=== PATIENT | male | born 1960 | race Caucasian/White ===

== ENCOUNTER → 2017-02-17 | Outpatient (CLI) | payer OTHER ==
[~2017-02-17] MED LIST: ASPIRIN 81M81 MG/TA2 PO; BRILINTA90 MG PO; GLUCOPHAGE500 MG/TAB PO; LIPITOR 40MG TA40 MG PO; NITROQUICK0.4 MG SL; NORCO 325 MG-51 TAB PO; TOPROL XL100 MG PO; VASOTEC 5MG5 MG/TAB; WELLBUTRIN SR150 M1 PO
== END ==
LOC: COL.RAD 13:32
DX: M54.41 Lumbago with sciatica, right side (principal); M47.816 Spondylosis without myelopathy or radiculopathy, lumbar region; M99.53 Intervertebral disc stenosis of neural canal of lumbar region; M48.06 Spinal stenosis, lumbar region

== ENCOUNTER → 2017-03-17 | Outpatient (REF) | LOC: WSOH 09:00 | DX: Z02.89 Encounter for other administrative examinations (principal) ==

== ENCOUNTER 2017-03-26 10:56 | Outpatient (RCR) | payer OTHER | END 2017-03-26 13:45 | disposition still patient (30) | LOC: WSOH 10:56 | DX: S01.81XA Laceration without foreign body of other part of head, initial encounter (principal); W26.8XXA Contact with other sharp object(s), not elsewhere classified, initial encounter; Y99.0 Civilian activity done for income or pay; Z95.5 Presence of coronary angioplasty implant and graft ==

== ENCOUNTER 2019-01-03 09:14 | Emergency (ER) | payer BC ==
[~2019-01-03] VITALS: Ht 190.5 cm; Wt 109.1 kg
[~2019-01-03 09:14] MED LIST changes: -LIPITOR 40MG TA40 MG PO; +LIPITOR 80MG80 MG PO; -VASOTEC 5MG5 MG/TAB; +VASOTEC 5MG5 MG/TAB PO
[2019-01-03 09:19] VITALS: TEMP 97.8
[2019-01-03 09:57] LABS: BASO # 0.1 (0.0-0.2); BASO % 0.6 % (0.0-2.0); EOS # 0.3 (0.0-0.7); EOS % 2.6 % (0-4.0); GRAN # 5.9 (1.4-6.5); HEMATOCRIT 45.6 % (42.0-52.0); HEMOGLOBIN 15.1 g/dl (13.5-18.0); LYMPH # 2.3 (1.2-3.4); LYMPH % 23.7 % (20.0-51.0); MEAN CELL VOLUME 95 fl (80.0-100.0); MEAN CORPUSCULAR HEMOGLOBIN 31 pg (27.0-31.0); MEAN CORPUSCULAR HGB CONC 33 g/dl (33.0-37.0); MEAN PLATELET VOLUME 8.9 fl (7.4-10.4); MONO # 1.3 (0.1-0.6); MONO % 12.8 % (1.7-9.3); PLATELET COUNT 280 K/mm3 (130-400); RED BLOOD COUNT 4.81 M/mm3 (4.20-5.60); REDCELL DISTRIBUTION WIDTH-CV 14.1 % (11.5-14.5)
[2019-01-03 10:05] LABS: PROTHROMBIN TIME 11.3 SECONDS (9.7-12.8)
[2019-01-03] MEDS ORDERED: PLAVIX 75MG TAB75 MG PO (10:05)
[2019-01-03 10:06] LABS: ALANINE AMINOTRANSFERASE 20 U/L (21-72); ALKALINE PHOSPHATASE 102 U/L (50-136); ANION GAP 14 mmol/L (7-16); AST,SGOT 22 U/L (15-37); BILIRUBIN,TOTAL 0.5 mg/dL (0.0-1.0); BLOOD UREA NITROGEN 19 mg/dL (9-20); CALCIUM 9.3 mg/dL (8.4-10.2); CARBON DIOXIDE 24 mmol/L (22-30); CHLORIDE 106 mmol/L (98-107); CREATININE, serum 0.61 (0.66-1.25); GLUCOSE 152 mg/dL (74-106); LIPASE 40 U/L (23-300); SODIUM 144 mmol/L (137-145)
[2019-01-03 10:20] LABS: TROPONIN-I < 0.012 ng/mL (0.000-0.035)
[2019-01-03] MEDS ORDERED: GLUCOPHAGE1000 MG PO (10:59)
[2019-01-03] MEDS ORDERED: WELLBUTRIN 100100 MG PO (11:00)
[2019-01-03 14:00] VITALS: BP 130/84; PULSE 66
== END 2019-01-03 14:27 | disposition home or self-care (01) ==
LOC: COL.ER 09:14
PROVIDERS: Emergency Medicine
DX: R07.9 Chest pain, unspecified (principal); E11.9 Type 2 diabetes mellitus without complications; I25.10 Atherosclerotic heart disease of native coronary artery without angina pectoris; I25.2 Old myocardial infarction; F17.210 Nicotine dependence, cigarettes, uncomplicated; Z95.1 Presence of aortocoronary bypass graft; Z95.5 Presence of coronary angioplasty implant and graft; Z79.82 Long term (current) use of aspirin; Z79.02 Long term (current) use of antithrombotics/antiplatelets; Z79.84 Long term (current) use of oral hypoglycemic drugs
CPT/HCPCS: J2270; J2405; J7030; Q9967

== ENCOUNTER 2019-01-10 06:10 | Day surgery (SDC) | payer BC ==
[2019-01-10] VITALS (12 sets, daily range): BP systolic 110–126; BP diastolic 70–90; PULSE 64–81; TEMP 97.6
[~2019-01-10] VITALS: Ht 190.7 cm; Wt 110.0 kg
[~2019-01-10 06:10] MED LIST changes: +GLUCOPHAGE1000 MG PO; +PLAVIX 75MG TAB75 MG PO; +WELLBUTRIN 100100 MG PO
[2019-01-10 06:44] LABS: HEMATOCRIT 46.1 % (42.0-52.0); HEMOGLOBIN 15.6 g/dl (13.5-18.0); MEAN CELL VOLUME 95 fl (80.0-100.0); MEAN CORPUSCULAR HEMOGLOBIN 32 pg (27.0-31.0); MEAN CORPUSCULAR HGB CONC 34 g/dl (33.0-37.0); MEAN PLATELET VOLUME 8.8 fl (7.4-10.4); PLATELET COUNT 289 K/mm3 (130-400); RED BLOOD COUNT 4.86 M/mm3 (4.20-5.60); REDCELL DISTRIBUTION WIDTH-CV 13.9 % (11.5-14.5)
[2019-01-10 06:49] LABS: INR 0.9 (0.8-3.0); PROTHROMBIN TIME 10.4 SECONDS (9.7-12.8)
[2019-01-10 06:56] LABS: CALCIUM 8.6 mg/dL (8.4-10.2); CREATININE, serum 0.6 (0.66-1.25); POTASSIUM 4.2 mmol/L (3.4-5.0)
--- NOTE | 2019-01-10 08:24 | NUR ---
SEE MERGE REPORT FOR MEDICATION ADMINISTRATION TIMES WELL INTRA/POST SEDATION ASSESSMENTS.
[2019-01-10] MEDS ORDERED: NITRO-DUR0.1 MG/PAT TD (09:12)
--- NOTE | 2019-01-10 09:20 | NUR ---
Pt returned to EU 12 per bed s/p heart cath. Pt resting well, at bedside.
--- NOTE | 2019-01-10 12:00 | NUR ---
Pt has voided and rose PO intake s n/v.
--- NOTE | 2019-01-10 13:40 | NUR ---
Pt has ambulated and PIV removed with catheter intact by Albino Stephens RN.
--- NOTE | 2019-01-10 14:10 | NUR ---
Pt discharged per w/c by nurse with .
== END 2019-01-10 15:39 | disposition home or self-care (01) ==
LOC: COL.CAR 06:10
PROVIDERS: Internal Medicine Cardiovascular Disease
DX: I25.5 Ischemic cardiomyopathy (principal); I25.110 Atherosclerotic heart disease of native coronary artery with unstable angina pectoris; I25.2 Old myocardial infarction; I10 Essential (primary) hypertension; Z95.5 Presence of coronary angioplasty implant and graft; Z95.1 Presence of aortocoronary bypass graft; I73.9 Peripheral vascular disease, unspecified; F17.210 Nicotine dependence, cigarettes, uncomplicated; Z79.82 Long term (current) use of aspirin; Z79.899 Other long term (current) drug therapy; Z79.02 Long term (current) use of antithrombotics/antiplatelets; Z80.9 Family history of malignant neoplasm, unspecified; Z82.49 Family history of ischemic heart disease and other diseases of the circulatory system; E11.9 Type 2 diabetes mellitus without complications; Z79.84 Long term (current) use of oral hypoglycemic drugs
CPT/HCPCS: J1644; J2250; J3010; Q9967

== ENCOUNTER 2019-06-09 15:08 | Outpatient (RCR) | payer BC ==
[~2019-06-09 15:08] MED LIST changes: +NITRO-DUR0.1 MG/PAT TD
== END 2019-07-05 13:14 | disposition home or self-care (01) ==
LOC: COL.CR 15:08
DX: Z48.812 Encounter for surgical aftercare following surgery on the circulatory system (principal); Z95.1 Presence of aortocoronary bypass graft

== ENCOUNTER → 2019-08-04 | Outpatient (CLI) | payer BC | LOC: COL.RAD 13:19 | DX: R07.2 Precordial pain (principal); Z95.1 Presence of aortocoronary bypass graft ==

== ENCOUNTER → 2020-05-17 | Outpatient (CLI) | payer OTHER | LOC: COL.RAD 09:29 | DX: M47.816 Spondylosis without myelopathy or radiculopathy, lumbar region (principal) ==

== ENCOUNTER 2022-01-26 20:12 | Observation (INO) | payer OTHER ==
[~2022-01-26] VITALS: Ht 190.5 cm; Wt 111.8 kg
[2022-01-26 20:30] LABS: BASO # 0.1 K/mm3 (0.0-0.2); BASO % 0.6 % (0.0-2.0); EOS # 0.2 K/mm3 (0.0-0.7); EOS % 2.1 % (0.0-4.0); GRAN # 6.4 K/mm3 (1.4-6.5); GRAN % 59.4 % (42.2-75.2); HEMATOCRIT 44.2 % (42.0-52.0); HEMOGLOBIN 15.3 g/dl (13.5-18.0); LYMPH # 2.9 K/mm3 (1.2-3.4); LYMPH % 26.6 % (20.0-51.0); MEAN CELL VOLUME 92 fl (80.0-100.0); MEAN CORPUSCULAR HEMOGLOBIN 32 pg (27-31); MEAN CORPUSCULAR HGB CONC 35 g/dl (33.0-37.0); MEAN PLATELET VOLUME 8.9 fl (7.4-10.4); MONO # 1.2 K/mm3 (0.1-0.6); MONO % 10.9 % (1.7-9.3); PLATELET COUNT 283 K/mm3 (130-400); REDCELL DISTRIBUTION WIDTH-CV 13.5 % (11.5-14.5)
[2022-01-26 20:49] LABS: ALANINE AMINOTRANSFERASE 25 U/L (0-55); ALBUMIN 3.8 gm/dL (3.4-4.8); ALKALINE PHOSPHATASE 93 U/L (40-150); ANION GAP 12 mmol/L (7-16); AST,SGOT 15 U/L (5-34); BILIRUBIN,TOTAL 0.5 mg/dL (0.2-1.2); BLOOD UREA NITROGEN 17 mg/dL (8-26); CALCIUM 9.4 mg/dL (8.4-10.2); CARBON DIOXIDE 22 mmol/L (23-31); CHLORIDE 107 mmol/L (98-107); CREATININE, serum 0.83 mg/dL (0.72-1.25); GLUCOSE 159 mg/dL (70-99); POTASSIUM 4.2 mmol/L (3.5-4.5); SODIUM 141 mmol/L (136-145)
[2022-01-26 20:59] LABS: TROPONIN-I < 0.010 ng/mL (0.00-0.033)
[2022-01-26 21:59] LABS: INR 0.9 (0.8-3.0); PROTHROMBIN TIME 10.7 SECONDS (9.7-12.8)
[2022-01-26 22:01] LABS: PARTIAL THROMBOPLASTIN TIME 31.2 SECONDS (26.0-37.0)
[2022-01-27 00:10] VITALS: BP 126/82; PULSE 87; TEMP 97.8
--- NOTE | 2022-01-27 00:30 | NUR ---
Admitted to medical floor from ER with dx Chest pain, denies chest pain at this time, states he feels actually really pretty good, up to bathroom, steady on feet, VSS, has heparin drip going at 10cc/hr {1000u/hr}, tele on, NPO since MN
[2022-01-27] MEDS ORDERED: WELLBUTRIN SR150 M1 PO (01:53)
[2022-01-27] MEDS ORDERED: VASOTEC 2.2.5 MG/TAB PO (01:54)
[2022-01-27] MEDS ORDERED: LOPRESSOR 550 MG/TAB PO (01:54)
[2022-01-27] MEDS ORDERED: LEXAPRO 10MG10 MG PO (01:55)
[2022-01-27] MEDS ORDERED: FLOMAX 0.40.4 MG/CAP PO (01:55)
[2022-01-27] MEDS ORDERED: AMARYL 2MG T2 MG/TAB PO (01:56)
[2022-01-27] MEDS ORDERED: ACTOS 15MG TAB15 MG PO (01:56)
[2022-01-27] MEDS ORDERED: TRULICITY1.5 MG/0.5 SQ (02:00)
[2022-01-27 03:21] LABS: BASO # 0.1 K/mm3 (0.0-0.2); BASO % 0.6 % (0.0-2.0); EOS # 0.3 K/mm3 (0.0-0.7); EOS % 2.3 % (0.0-4.0); GRAN # 5.6 K/mm3 (1.4-6.5); GRAN % 50.2 % (42.2-75.2); HEMATOCRIT 45.2 % (42.0-52.0); HEMOGLOBIN 15.2 g/dl (13.5-18.0); LYMPH # 3.9 K/mm3 (1.2-3.4); LYMPH % 35.1 % (20.0-51.0); MEAN CELL VOLUME 93 fl (80.0-100.0); MEAN CORPUSCULAR HEMOGLOBIN 31 pg (27-31); MEAN CORPUSCULAR HGB CONC 34 g/dl (33.0-37.0); MONO # 1.3 K/mm3 (0.1-0.6); MONO % 11.4 % (1.7-9.3); PLATELET COUNT 271 K/mm3 (130-400); RED BLOOD COUNT 4.87 M/mm3 (4.20-5.60); REDCELL DISTRIBUTION WIDTH-CV 13.6 % (11.5-14.5)
[2022-01-27 03:37] LABS: CREATININE, serum 0.71 mg/dL (0.72-1.25); POTASSIUM 3.8 mmol/L (3.5-4.5)
[2022-01-27 03:49] VITALS: BP 100/56; PULSE 76; TEMP 97.6
--- NOTE | 2022-01-27 05:15 | NUR ---
Has been resting since all admission work was completed, VSS, heparin drip was just increased to 11.5cc/hr{1150u/hr} based on hepxa -- will have another drawn at 1045 . No complaints of chest pain, NPO, tele on
[2022-01-27 08:00] VITALS: BP 98/59; PULSE 87; TEMP 97.7
--- NOTE | 2022-01-27 08:00 | NUR ---
Pt lying down in bed. Shift assessment completed. A&O x4. Pt voice no concerns or needs at this time. Peripheral line in right arm without redness or edema. Remaina
--- NOTE | 2022-01-27 08:00 | NUR ---
Pt lying down in bed. Shift assessment complete. A&O x4. VSS. Remains NPO. Pt denies any disconfort or concern, but he states feeling tired and sleepy. Peripheral line in right arm CDI, no edema or redness. Call light within reach.
[2022-01-27 08:10] VITALS: BP 98/59; PULSE 87; TEMP 97.7
--- NOTE | 2022-01-27 09:21 | NUR ---
ZACH met with the patient and his , Shelby (ph#[phone]), to discuss discharge plan. The patient lives in [place] with his , two daughters, their significant others, and grandchildren. He reports independence with ADLs and does not have any DME. The patient's PCP is Dr. Kam Linder and he receives his medications from [facility]. He reports no difficulties obtaining his meds. The patient does not have a DPOA-HC and he was not interested in completing one at this time. The patient plans to return home with his family upon discharge. No additional needs at this time. *Discharge plan: home with family*
[2022-01-27 11:53] VITALS: BP 95/58; PULSE 85; TEMP 97.9
[2022-01-27 12:00] VITALS: BP 95/58; PULSE 85; TEMP 97.9
--- NOTE | 2022-01-27 13:57 | NUR ---
Pt off unit for CT scan procedure.
--- NOTE | 2022-01-27 14:15 | NUR ---
Pt back in medical unit from CT scan procedure. Denies any concern at the time. call light within reach.
[2022-01-27] MEDS ORDERED: NORCO 325 MG-51 TAB PO ×2 (15:02)
--- NOTE | 2022-01-27 16:19 | NUR ---
Patient deemed fit for discharge. IV DC'd, catheter intact, no signs of phlebitis. Discharge education/instructions given. All questions answered. Patient denies any pain, discomfort, SOA, or further needs at this time. Patient ambulated from building escorted by [facility] staff. transporting home.
== END 2022-01-27 16:15 | disposition home or self-care (01) ==
LOC: COL.ER 20:12 → MEDICAL 21:38 → COL.ER 21:38 → MEDICAL 01-27
PROVIDERS: Student in an Organized Health Care Education/Training Program; ADMIT Internal Medicine
DX: R07.9 Chest pain, unspecified (principal); Z86.718 Personal history of other venous thrombosis and embolism; I25.10 Atherosclerotic heart disease of native coronary artery without angina pectoris; I10 Essential (primary) hypertension; E11.9 Type 2 diabetes mellitus without complications; F32.A Depression, unspecified; Z79.02 Long term (current) use of antithrombotics/antiplatelets; Z79.899 Other long term (current) drug therapy; F17.210 Nicotine dependence, cigarettes, uncomplicated; N40.0 Benign prostatic hyperplasia without lower urinary tract symptoms; Z79.84 Long term (current) use of oral hypoglycemic drugs; I08.1 Rheumatic disorders of both mitral and tricuspid valves
CPT/HCPCS: G0378; J1644; Q9967

== ENCOUNTER 2023-03-07 15:21 | Inpatient (IN) | payer MEDICARE, OTHER ==
[~2023-03-07] VITALS: Ht 190.5 cm; Wt 111.0 kg
[2023-03-07] VITALS (302 sets, daily range): O2SAT 82–99
[~2023-03-07 15:21] MED LIST changes: +ACTOS 15MG TAB15 MG PO; +AMARYL 2MG T2 MG/TAB PO; +ASPRUZYO SPRIN500 MG PO; +ENTRESTO 49 MG1 EACH PO; +FLOMAX 0.40.4 MG/CAP PO; +JARDIANCE25 PO; +LEXAPRO 10MG10 MG PO; +LOPRESSOR 550 MG/TAB PO; +RANEXA 500MG T500 MG PO; +TRULICITY3 MG/0.5 M SQ; +VASOTEC 2.2.5 MG/TAB PO
[2023-03-07 15:41] LABS: BASO # 0.1 K/mm3 (0.0-0.2); BASO % 0.7 % (0.0-2.0); EOS # 0.2 K/mm3 (0.0-0.7); EOS % 1.7 % (0.0-4.0); GRAN # 5.6 K/mm3 (1.4-6.5); GRAN % 62.4 % (42.2-75.2); HEMATOCRIT 42.1 % (42.0-52.0); HEMOGLOBIN 13.3 g/dl (13.5-18.0); LYMPH # 2.1 K/mm3 (1.2-3.4); LYMPH % 22.9 % (20.0-51.0); MEAN CELL VOLUME 96 fl (80.0-100.0); MEAN CORPUSCULAR HEMOGLOBIN 30 pg (27-31); MEAN CORPUSCULAR HGB CONC 32 g/dl (33.0-37.0); MEAN PLATELET VOLUME 9.3 fl (7.4-10.4); MONO # 1.1 K/mm3 (0.1-0.6); MONO % 11.9 % (1.7-9.3); PLATELET COUNT 354 K/mm3 (130-400); RED BLOOD COUNT 4.41 M/mm3 (4.20-5.60); REDCELL DISTRIBUTION WIDTH-CV 16.4 % (11.5-14.5)
[2023-03-07 15:51] LABS: INR 1.6 (0.8-3.0); PROTHROMBIN TIME 17.8 SECONDS (9.7-12.8)
[2023-03-07 16:02] LABS: BILIRUBIN,TOTAL 1.5 mg/dL (0.2-1.2); CALCIUM 9.3 mg/dL (8.4-10.2); CREATININE, serum 1.3 mg/dL (0.72-1.25); POTASSIUM 4.6 mmol/L (3.5-4.5); TOTAL PROTEIN 6.5 gm/dL (6.2-8.1)
[2023-03-07 16:08] LABS: TROPONIN-I 0.014 ng/mL (0.00-0.033)
[2023-03-07] MEDS ORDERED: ELIQUIS 5MG PO (16:47)
[2023-03-07] MEDS ORDERED: ALDACTONE 25MG25 M1 PO (16:48)
[2023-03-07] MEDS ORDERED: ZOFRAN 4MG T4 MG/TAB PO (18:24)
[2023-03-07] MEDS ORDERED: NORCO 325 MG-51 TAB PO (18:27)
--- NOTE | 2023-03-07 18:30 | NUR ---
Report received from RAMIREZ Beltran; patient brought over in wheelchair by RAMIREZ Beltran. Patient able to ambulate from the wheelchair to the bed independently. Patient's vital signs were within normal limits when attached to the ICU monitors and had no fluids or meds running through his peripheral line. Patient tried to eat dinner but then vomited and was not able to eat. Informed patient that if nausea continued to be a problem we could ask the hospitalist for an anti-emetic.
--- NOTE | 2023-03-07 22:11 | NUR ---
RECEIVED REPORT FROM REGINALDO LOPEZ RN. PATIENT VISITING WITH AT THIS TIME. CALL LIGHT WITHIN REACH. ORDERS, LABS, AND MEDICATIONS REVIEWED AND ACKNOWLEDGED.
--- NOTE | 2023-03-07 22:15 | NUR ---
HEAD TO TOE ASSESSMENT COMPLETED. PATIENT ALERT AND ORIENTATED X4. PUPILS EQUAL AND REACTIVE BILATERALLY. HEART SOUNDS REGULAR WITH S1 AND S2 NOTED. LUNG SOUNDS CLEAR BILATERALLY IN UPPER AND LOWER LOBES. BOWEL SOUNDS ACTIVE IN ALL QUADRANTS. PATIENT HAS +1 EDEMA TO LOWER EXTREMITIES. PATIENT HAS NO COMPLAINTS OF PAIN. MEDICATIONS ADMINISTERED PER EMAR. CALL LIGHT WITHIN REACH.
[2023-03-08] VITALS (786 sets, daily range): BP systolic 91–114; BP diastolic 56–85; PULSE 74–93; TEMP 97.5–98.1; O2SAT 80–99
[2023-03-08 05:42] LABS: BASO # 0.1 K/mm3 (0.0-0.2); BASO % 0.7 % (0.0-2.0); EOS # 0.1 K/mm3 (0.0-0.7); EOS % 0.9 % (0.0-4.0); GRAN # 4.8 K/mm3 (1.4-6.5); GRAN % 51.6 % (42.2-75.2); HEMATOCRIT 38.8 % (42.0-52.0); HEMOGLOBIN 12.7 g/dl (13.5-18.0); LYMPH # 3.1 K/mm3 (1.2-3.4); LYMPH % 32.6 % (20.0-51.0); MEAN CORPUSCULAR HEMOGLOBIN 30 pg (27-31); MEAN CORPUSCULAR HGB CONC 33 g/dl (33.0-37.0); MEAN PLATELET VOLUME 9.4 fl (7.4-10.4); MONO # 1.3 K/mm3 (0.1-0.6); MONO % 13.9 % (1.7-9.3); PLATELET COUNT 360 K/mm3 (130-400); RED BLOOD COUNT 4.25 M/mm3 (4.20-5.60); REDCELL DISTRIBUTION WIDTH-CV 16.1 % (11.5-14.5)
[2023-03-08 05:46] LABS: MEAN CELL VOLUME 91 fl (80.0-100.0)
[2023-03-08 05:53] LABS: ALBUMIN 3.1 gm/dL (3.4-4.8); CALCIUM 9.3 mg/dL (8.4-10.2); CREATININE, serum 1.08 mg/dL (0.72-1.25); MAGNESIUM 2.2 mg/dL (1.6-2.6); PHOSPHOROUS 5.1 mg/dL (2.3-4.7); POTASSIUM 3.8 mmol/L (3.5-4.5)
--- NOTE | 2023-03-08 06:48 | NUR ---
PATIENT HAD VERY UNEVENTFUL NIGHT. PATIENT SLEPT OTHER THAN WHEN NEEDING TO USE URINAL. PATIENT REPORTS FEELING BETTER AND NOT FEELING SHORT OF AIR HE DID UPON ADMISSION. PATIENT CURRENTLY IN BED SCROLLING ON PHONE AND WATCHING TV. CALL LIGHT WITHIN REACH.
--- NOTE | 2023-03-08 12:13 | NUR ---
BEDSIDE REPORT RECEIVED FROM RAMIREZ CRISTOBAL. PT RESTING IN BED, VSS, ON ROOM AIR. NO DRIPS INFUSING AT THIS TIME. PT IS ALERT AND ORIENTED, CALL LIGHT IN REACH.
--- NOTE | 2023-03-08 13:16 | NUR ---
SW reviewed pt's clinical record and noted he was admitted for SOB he had for one week. Pt has a h/o CAD, HTN, DM as well as Major Depression, stabilized on Wellbutrin and Lexapro. SW met pt briefly @ the bedside this afternoon. Pt reports he is and lives in his own home in [place]. He reports he is independent in his ADL's/IADL's and is ambulatory without assistive devices. Pt fills his prescriptions @ [facility] and his primary care provider is Dr. Kam Linder. Pt indicated his will provide him with transportation home once he is medically clear for discharge. Pt does not anticipate a need for outpatient services once he returns home. No other concerns noted. SW will continue to follow.
--- NOTE | 2023-03-08 13:39 | NUR ---
PT ARRIVED TO ROOM 317 FROM THE ICU. PT IS A&OX4, [facility] PT STATES FREQUENT URINATION DUE TO THE LASIX. PT IS SITTING IN THE RECLINER WATCHING TV. LUNG SOUNDS CLEAR, HEART SOUNDS REGULAR, BOWEL SOUNDS ACTIVE. PT STATES HE IS FEELING MUCH BETTER COMPARED TO THE LAST FEW DAYS. PT ATE LUNCH IN THE ICU PRIOR TO COMING TO THE FLOOR. NO COMPLAINTS OF PAIN OR DISCOMFORT. NO SHORTNESS OF BREATH NOTED, PT ON ROOM AIR.
[2023-03-09 00:03] VITALS: BP 102/67
[2023-03-09 03:07] VITALS: BP 105/60; PULSE 72; TEMP 98
[2023-03-09 07:15] LABS: BASO # 0.1 K/mm3 (0.0-0.2); BASO % 0.7 % (0.0-2.0); EOS # 0.2 K/mm3 (0.0-0.7); EOS % 2.9 % (0.0-4.0); GRAN # 4.8 K/mm3 (1.4-6.5); GRAN % 58.7 % (42.2-75.2); HEMATOCRIT 37.5 % (42.0-52.0); MEAN CELL VOLUME 94 fl (80.0-100.0); MEAN CORPUSCULAR HEMOGLOBIN 30 pg (27-31); MEAN CORPUSCULAR HGB CONC 32 g/dl (33.0-37.0); MEAN PLATELET VOLUME 9.4 fl (7.4-10.4); MONO # 1.1 K/mm3 (0.1-0.6); MONO % 13.5 % (1.7-9.3); PLATELET COUNT 380 K/mm3 (130-400); REDCELL DISTRIBUTION WIDTH-CV 15.9 % (11.5-14.5)
[2023-03-09 07:20] VITALS: BP 105/62; PULSE 79; TEMP 97.9
[2023-03-09 07:28] LABS: CALCIUM 8.9 mg/dL (8.4-10.2); CREATININE, serum 0.95 mg/dL (0.72-1.25); MAGNESIUM 2.2 mg/dL (1.6-2.6); PHOSPHOROUS 4.3 mg/dL (2.3-4.7); POTASSIUM 3.2 mmol/L (3.5-4.5)
--- NOTE | 2023-03-09 08:30 | NUR ---
PATIENT AWAKE AND ALERT, SITTING UP IN RECLINER. PATIENT DENIES ANY NEEDS OR COMPLAINTS AT THIS TIME/ CALLLIGHT WITHIN REACH.
[2023-03-09] MEDS ORDERED: ENTRESTO 24 MG1 EACH PO (09:29)
[2023-03-09] MEDS ORDERED: ALDACTONE 25MG25 M1 PO (09:29)
[2023-03-09] MEDS ORDERED: TOPROL XL 25MG25 MG PO (09:29)
[2023-03-09 11:30] VITALS: BP 86/54; PULSE 83; TEMP 97.7
--- NOTE | 2023-03-09 11:30 | NUR ---
Reviewed CHF s/s - Zone education sheet review and given. Patient declined referral sent to [facility] with CHF ([id number] Patient reports he is currently utazling a gym near home and plans to continue post discharge. Facility contact information was given if questions or concerns arise.
[2023-03-09 11:58] VITALS: BP 111/75; PULSE 91; TEMP 98
--- NOTE | 2023-03-09 12:00 | NUR ---
PATIENTS IV AND TELE REMOVED. PATIENT GIVEN DISCHARGE INSTRUCTIONS AND EDUCATION. SARAH DUNN CALLED TO VERIFY HE WANTED PATIENT TO TAKE THE METOPROLOL AND ENTRESTO AND ALDACTONE ORDERED FOR DISCHARGE. PATIENT STATED HE FELT ALL QUESTIONS ANSWERED. PATIENT WALKED TO ER ENTRANCE WITH PCT AND HIS . EDWARD LEFT IN STABLE CONDITION WITH HIS .
== END 2023-03-09 12:30 | disposition home or self-care (01) | DRG 293 ==
LOC: COL.ER 15:21 → ICU 16:26 → MEDICAL 03-08 13:30
PROVIDERS: Emergency Medicine; ADMIT Internal Medicine
DX: I50.33 Acute on chronic diastolic (congestive) heart failure (principal); Z86.718 Personal history of other venous thrombosis and embolism; I25.10 Atherosclerotic heart disease of native coronary artery without angina pectoris; Z95.5 Presence of coronary angioplasty implant and graft; Z95.1 Presence of aortocoronary bypass graft; E87.6 Hypokalemia; I95.9 Hypotension, unspecified; E11.9 Type 2 diabetes mellitus without complications; Z79.4 Long term (current) use of insulin; F32.A Depression, unspecified; Z72.0 Tobacco use; N40.0 Benign prostatic hyperplasia without lower urinary tract symptoms
CPT/HCPCS: A9270; C8923; J1815; J1940; Q9957

== ENCOUNTER 2023-09-10 17:52 | Inpatient (IN) | payer MEDICARE, OTHER ==
[~2023-09-10] VITALS: Ht 190.5 cm; Wt 123.3 kg
[~2023-09-10 17:52] MED LIST changes: +ALDACTONE 25MG25 M1 PO; +ELIQUIS 5MG PO; +ENTRESTO 24 MG1 EACH PO; +TOPROL XL 25MG25 MG PO; +ZOFRAN 4MG T4 MG/TAB PO
[2023-09-10] MEDS ORDERED: methylPREDNISolone Sod Succ 125 MG/2 ML VIAL IV ONE (18:15)
[2023-09-10] MEDS ORDERED: Albuterol 0.083% Neb Soln 2.5 MG/3 ML UD IH ONE (18:15)
[2023-09-10] MEDS ORDERED: Ipratropium 0.02% Neb Soln 0.5 MG/2.5 ML UD IH ONE (18:15)
[2023-09-10 18:17] LABS: ARTERIAL BLD GAS O2 SATURATION 92.1 % (92-100); ARTERIAL BLD GAS TCO2 CT 22.1; ARTERIAL BLOOD GAS BASE EXCESS -1.3 (-2-2); ARTERIAL BLOOD GAS HCO3 21.2 meq/L (22-26); ARTERIAL BLOOD GAS PCO2 30.2 mmHg (35-45); ARTERIAL BLOOD GAS PO2 58.7 mmHg (80-100); ARTERIAL BLOOD GAS pH 7.46 (7.35-7.45)
[2023-09-10 19:01] LABS: BASO # 0.1 K/mm3 (0.0-0.2); BASO % 0.5 % (0.0-2.0); EOS % 0.2 % (0.0-4.0); GRAN # 10.3 K/mm3 (1.4-6.5); GRAN % 83.2 % (42.2-75.2); HEMATOCRIT 46.6 % (42.0-52.0); HEMOGLOBIN 15.2 g/dl (13.5-18.0); LYMPH % 7.9 % (20.0-51.0); MEAN CELL VOLUME 93 fl (80.0-100.0); MEAN CORPUSCULAR HEMOGLOBIN 31 pg (27-31); MEAN CORPUSCULAR HGB CONC 33 g/dl (33.0-37.0); MEAN PLATELET VOLUME 9.1 fl (7.4-10.4); PLATELET COUNT 230 K/mm3 (130-400); RED BLOOD COUNT 4.99 M/mm3 (4.20-5.60); REDCELL DISTRIBUTION WIDTH-CV 16.7 % (11.5-14.5)
[2023-09-10 19:23] LABS: BILIRUBIN,TOTAL 1.5 mg/dL (0.2-1.2); CALCIUM 9.8 mg/dL (8.4-10.2); MAGNESIUM 1.9 mg/dL (1.6-2.6); POTASSIUM 4.2 mmol/L (3.5-4.5); TOTAL PROTEIN 7.6 gm/dL (6.2-8.1)
[2023-09-10 19:29] LABS: TROPONIN-I 0.023 ng/mL (0.00-0.033)
[2023-09-10] MEDS ORDERED: Furosemide 100 MG/10 ML VIAL IV ONE (19:45)
[2023-09-10 21:12] LABS: URINE APPEARANCE CLEAR (CLEAR/HAZY); URINE BLOOD TRACE (NEGATIVE); URINE COLOR YELLOW (YELLOW); URINE GLUCOSE NEGATIVE (NEGATIVE); URINE KETONE TRACE (NEGATIVE); URINE NITRATE NEGATIVE (NEGATIVE); URINE PROTEIN(semi-quant) 2+ (NEGATIVE); URINE UROBILINOGEN 0.2 E.U/dL (0.2-1.0)
[2023-09-10 21:13] LABS: COLLECTION METHOD CLEAN CATCH
[2023-09-10] MEDS ORDERED: cefTRIAXone 1 G in Water For Injection,Sterile 20 ML IV ONE (21:30)
[2023-09-10] MEDS ORDERED: NS 100 ML IV SCH (22:07)
[2023-09-10] MEDS ORDERED: Iohexol 300 - 100 ML VIAL IV ONE (22:08)
[2023-09-10] MEDS ORDERED: Acetaminophen 325 MG TAB PO PRN (23:15)
[2023-09-10] MEDS ORDERED: Ondansetron 4 MG/2 ML VIAL IV PRN (23:15)
[2023-09-10] MEDS ORDERED: Albuterol/Ipratropium 3 MG-0.5 MG/3 ML Neb Soln IH PRN (23:15)
--- NOTE | 2023-09-10 23:30 | NUR ---
Patient arrived to the unit at this time with belongings. Denies any pain or needs at this time. Patient is on 2L NC at this time. Assessment and med rec complete. IV in left hand flushes easily with no complications. Oriented patient to room, call light, bathroom, and phone. Call light and personal items in reach. Bed in low position.
[2023-09-10 23:35] VITALS: BP 109/66; PULSE 96; TEMP 97.5
[2023-09-10] MEDS ORDERED: Glucagon 1 MG VIAL IM PRN (23:45)
[2023-09-10] MEDS ORDERED: Dextrose 50% Water 25 GM/50 ML SYRINGE IV PRN (23:45)
[2023-09-10] MEDS ORDERED: Dextrose (Glucose) 15 GM (4 x 3.75 GM) Chewable TABLET PACK PO PRN (23:45)
[2023-09-11 03:10] VITALS: BP 100/48; PULSE 73; TEMP 97.5
--- NOTE | 2023-09-11 06:00 | NUR ---
Patient resting in bed. Denies any pain or needs at this time. Call light and personal items in reach. Bed in low position.
[2023-09-11 07:00] LABS: HEMATOCRIT 38.9 % (42.0-52.0); MEAN CELL VOLUME 90 fl (80.0-100.0); MEAN CORPUSCULAR HEMOGLOBIN 30 pg (27-31); MEAN CORPUSCULAR HGB CONC 34 g/dl (33.0-37.0); MEAN PLATELET VOLUME 9.1 fl (7.4-10.4); PLATELET COUNT 190 K/mm3 (130-400); RED BLOOD COUNT 4.34 M/mm3 (4.20-5.60); REDCELL DISTRIBUTION WIDTH-CV 15.9 % (11.5-14.5)
[2023-09-11 07:08] LABS: HEMOGLOBIN 13.2 g/dl (13.5-18.0)
[2023-09-11 07:18] LABS: ALBUMIN 3.4 gm/dL (3.4-4.8); BILIRUBIN,TOTAL 1.1 mg/dL (0.2-1.2); CALCIUM 7.9 mg/dL (8.4-10.2); CREATININE, serum 1.02 mg/dL (0.72-1.25); POTASSIUM 3.9 mmol/L (3.5-4.5); TOTAL PROTEIN 6.5 gm/dL (6.2-8.1)
[2023-09-11 07:21] VITALS: BP 106/53; PULSE 80; TEMP 98.4
[2023-09-11 07:25] LABS: ANISOCYTOSIS 1+; HYPOCHROMIA 1+; LYMPHOCYTE 8 % (20.0-51.0); NEUTROPHILS 89 % (42.0-75.2); PLATELET ESTIMATE NORMAL (NORMAL)
[2023-09-11 07:26] LABS: BURR CELLS 1+
[2023-09-11] MEDS ORDERED: Insulin Lispro (HumaLOG) SQ SCH (08:00)
[2023-09-11 08:07] LABS: CHOLESTEROL RISK RATIO 3.4
--- NOTE | 2023-09-11 08:34 | NUR ---
ASSESSMENT COMPLETE. PATIENT ON PHONE WITH HIS DURING ASSESSMENT. STATES THAT SHORTNESS OF BREATH HAS IMPROVED SIGNIFICANTLY FROM YESTERDAY.
[2023-09-11] MEDS ORDERED: Sennosides/Docusate 8.6-50 MG TAB PO SCH (09:00)
[2023-09-11] MEDS ORDERED: Spironolactone 25 MG TAB PO SCH (09:00)
[2023-09-11] MEDS ORDERED: Apixaban 5 MG TAB PO SCH (09:00)
[2023-09-11] MEDS ORDERED: Clopidogrel 75 MG TAB PO SCH (09:00)
[2023-09-11] MEDS ORDERED: Furosemide 40 MG/4 ML VIAL IV SCH (09:00)
[2023-09-11] MEDS ORDERED: buPROPion SR (12-HR) 150 MG TAB PO SCH (09:00)
[2023-09-11] MEDS ORDERED: Escitalopram 10 MG TAB PO SCH (09:00)
[2023-09-11] MEDS ORDERED: LASIX 40MG TABL40 MG PO (10:25)
--- NOTE | 2023-09-11 10:29 | NUR ---
SW met with patient to complete intake. Patient provides he lives in [place], [place] with Shelby Barnett [phone]. Patient provides he is independent with ADL's, does not utilize DME at this time, nor home health services. Pharmacy is [facility]. DPOA/HC is spouse. Patient provides he plans to return to his home upon discharge. SW will continue to follow. Discharge plan: home
--- NOTE | 2023-09-11 11:17 | NUR ---
PATIENT AMBULATING INDEPENDANTLY, ESCORTED WITH TO HOSPITAL EXIT.
--- NOTE | 2023-09-11 11:19 | NUR ---
1100-DISCHARGE INSTRUCTIONS AND EDUCATION PROVIDED AND DISCUSSED WITH THE PATIENT. IV ACCESS IS DISCONTINUED. PATIENT NOTIFIED THAT HE WILL BE READY TO LEAVE SHORTLY. ADVISED PATIENT TO LET STAFF KNOW WHEN HIS ARRIVES SO THAT HE CAN BE ESCORTED OUT. ALL QUESTIONS ANSWERED TO PATIENT SATISFACTION.
== END 2023-09-11 11:15 | disposition home or self-care (01) | DRG 291 ==
LOC: COL.ER 17:52 → MEDICAL 21:53
PROVIDERS: Internal Medicine; Physician Assistant; ADMIT Internal Medicine
DX: I50.23 Acute on chronic systolic (congestive) heart failure (principal); J96.01 Acute respiratory failure with hypoxia; I25.10 Atherosclerotic heart disease of native coronary artery without angina pectoris; E11.51 Type 2 diabetes mellitus with diabetic peripheral angiopathy without gangrene; Z20.822 Contact with and (suspected) exposure to COVID-19; F32.A Depression, unspecified; E78.5 Hyperlipidemia, unspecified; N40.0 Benign prostatic hyperplasia without lower urinary tract symptoms; I48.91 Unspecified atrial fibrillation; E11.65 Type 2 diabetes mellitus with hyperglycemia; T38.0X5A Adverse effect of glucocorticoids and synthetic analogues, initial encounter; Z95.1 Presence of aortocoronary bypass graft; Z95.5 Presence of coronary angioplasty implant and graft; Z86.718 Personal history of other venous thrombosis and embolism; Z95.0 Presence of cardiac pacemaker; Z79.01 Long term (current) use of anticoagulants; Z79.02 Long term (current) use of antithrombotics/antiplatelets; Z87.891 Personal history of nicotine dependence; Z79.84 Long term (current) use of oral hypoglycemic drugs; Z79.899 Other long term (current) drug therapy; Z23 Encounter for immunization
CPT/HCPCS: J0696; J1815; J1940; J2930; Q9967